=== PATIENT | female | born 1965 | race Caucasian/White ===

== ENCOUNTER 2019-03-03 14:34 | Emergency (ER) | payer OTHER ==
[~2019-03-03] VITALS: Ht 165.1 cm; Wt 75.7 kg
[2019-03-03] MEDS ORDERED: ATORVASTATIN CA10 MG (15:29)
[2019-03-03] MEDS ORDERED: GLUCOPHAGE XR750 MG (15:29)
[2019-03-03] MEDS ORDERED: LISINOPRIL10 MG (15:30)
== END 2019-03-03 19:54 | disposition home or self-care (01) ==
LOC: ER 14:34
DX: N30.80 Other cystitis without hematuria (principal); B96.29 Other Escherichia coli [E. coli] as the cause of diseases classified elsewhere